=== PATIENT | female | born 1980 | race Asian ===

== ENCOUNTER 2016-12-25 01:54 | Emergency (ER) | payer SELFPAY ==
[~2016-12-25] VITALS: Ht 162.6 cm; Wt 49.9 kg
[2016-12-25] MEDS ORDERED: NKM (02:03)
[2016-12-25 02:05] VITALS: BP 124/82
--- NOTE | 2016-12-25 02:56 | Emergency Room Report ---
History of Present Illness General Chief Complaint: Behavioral Complaint Source: Patient Present Illness HPI 28-year-old female no significant past medical history brought by EMS for her running in the street and yelling. Patient states that she drank a few drinks, currently denying any and SI or HI. Denies any psych history. Allergies: Coded Allergies: No Known Allergies (Unverified , 12/25/16) Patient History Past Medical History: see triage record Past Surgical History: none Pertinent Family History: none Last Menstrual Period: 2 weeks ago Reviewed Nursing Documentation: PMH: Agreed, PSxH: Agreed Nursing Documentation-PMH Past Medical History: No Stated History Review of Systems All Other Systems: negative except mentioned in HPI Physical Exam Vital Signs Date Time Temp Pulse Resp B/P (MAP) Pulse Ox O2 Delivery O2 Flow Rate FiO2 12/25/16 02:02 98.1 114 16 124/82 98 Room Air Sp02 EP Interpretation: reviewed, normal General Appearance: alert, GCS 15, non-toxic, other - Intoxicated female, anxious-appearing, conversing however very guarded Head: normocephalic, atraumatic Eyes: bilateral eye normal inspection, bilateral eye PERRL, bilateral eye EOMI ENT: normal ENT inspection, normal pharynx, normal voice, moist mucus membranes Neck: normal inspection, full range of motion, supple Respiratory: normal inspection, lungs clear, normal breath sounds, no respiratory distress, no retraction, no wheezing, speaking full sentences, chest symmetrical Cardiovascular #1: normal inspection, regular rate, rhythm, no edema, normal capillary refill Cardiovascular #2: 2+ radial (R), 2+ radial (L) Gastrointestinal: normal inspection, non tender, soft, non-distended, no guarding Musculoskeletal: normal inspection, back normal, normal range of motion, non- tender Neurologic: normal inspection, alert, oriented x3, responsive, motor strength/ tone normal, sensory intact, normal gait, speech normal Psychiatric: normal inspection, judgement/insight normal, memory normal Skin: normal inspection, normal color, no rash, warm/dry, well hydrated, normal turgor Medical Decision Making Diagnostic Impression: Primary Impression: Alcohol intoxication ER Course 36-year-old female, brought by EMS, found in the street possible alcohol intoxication versus psych DDX: Likely alcohol intoxication Psych: At this time patient denies any SI, TOBIAS, auditory hallucinations Plan: BGM, Obtain labs, alcohol level, pending sobriety ER course: I evaluated the patient at bedside, took a history, patient denying any S. I or HI, denies hearing voices, states that she had a couple drinks. Patient appeared very anxious and paranoid that we were going to report her, and I calmly told her that we are only trying to help her. Patient looks, ran outside, security found her running on street and brought her back to the emergency room Blood work was drawn, patient's alcohol level 199 I called the patient's sister and , the came and picked up the patient. Close patient's sister and denies patient ever having any psych history, has been states that patient was only drunk. She was ambulatory in the emergency room Safe for discharge Now clinically sober, ambulatory. Disposition: Patient is to be discharged to home. Patient is instructed to follow up with their primary care doctor within 5 days. Please note that this Emergency Department Report was dictated using [employer] technology software, occasionally this can lead to erroneous entry secondary to interpretation by the dictation equipment Laboratory Tests Test 12/25/16 03:18 White Blood Count 5.8 K/UL (4.8-10.8) Red Blood Count 4.64 M/UL (4.20-5.40) Hemoglobin 14.0 G/DL (12.0-16.0) Hematocrit 42.3 % (37.0-47.0) Mean Corpuscular Volume 91 FL (80-99) Mean Corpuscular Hemoglobin 30.3 PG (27.0-31.0) Mean Corpuscular Hemoglobin Concent 33.2 G/DL (32.0-36.0) Red Cell Distribution Width 10.8 % (11.6-14.8) L Platelet Count 274 K/UL (150-450) Mean Platelet Volume 6.6 FL (6.5-10.1) Neutrophils (%) (Auto) 79.2 % (45.0-75.0) H Lymphocytes (%) (Auto) 15.2 % (20.0-45.0) L Monocytes (%) (Auto) 3.9 % (1.0-10.0) Eosinophils (%) (Auto) 0.6 % (0.0-3.0) Basophils (%) (Auto) 1.1 % (0.0-2.0) Sodium Level 143 mEQ/L (135-145) Potassium Level 3.5 mEQ/L (3.4-4.9) Chloride Level 104 mEQ/L (98-107) Carbon Dioxide Level 21 mEQ/L (20-30) Anion Gap 18 (5-15) H Blood Urea Nitrogen 10 mg/dL (7-23) Creatinine 0.6 mg/dL (0.5-0.9) Estimate Glomerular Filtration Rate > 60 mL/min (>60) Glucose Level 131 mg/dL (74-106) H Calcium Level 9.5 mg/dL (8.6-10.2) Total Bilirubin 0.5 mg/dL (0.0-1.2) Aspartate Amino Transferase (AST) 24 U/L (5-40) Alanine Aminotransferase (ALT) 24 U/L (3-33) Alkaline Phosphatase 48 U/L (35-104) Total Protein 7.8 g/dL (6.6-8.7) Albumin 4.8 g/dL (3.5-5.2) Globulin 3.0 g/dL Albumin/Globulin Ratio 1.6 (1.0-2.7) Salicylates Level < 1 mg/dL (10-30) L Acetaminophen Level < 10 ug/mL (10-30) L Serum Alcohol 199 mg/dL Last Vital Signs Date Time Temp Pulse Resp B/P (MAP) Pulse Ox O2 Delivery O2 Flow Rate FiO2 12/25/16 02:02 98.1 114 16 124/82 98 Room Air Disposition: HOME, SELF-CARE Condition: Improved Patient Instructions: Alcohol Intoxication Dinora Stallworth M.D. Dec 25, 2016 02:56
[2016-12-25 03:47] LABS: BASOPHILS % (AUTO) 1.1 % (0.0-2.0); EOSINOPHILS % (AUTO) 0.6 % (0.0-3.0); LYMPHOCYTES % (AUTO) 15.2 % (20.0-45.0); MEAN CORPUSCULAR HEMOGLOBIN 30.3 PG (27.0-31.0); MEAN CORPUSCULAR HGB CONC 33.2 G/DL (32.0-36.0); MEAN CORPUSCULAR VOLUME 91 FL (80-99); MEAN PLATELET VOLUME 6.6 FL (6.5-10.1); MONOCYTES % (AUTO) 3.9 % (1.0-10.0); NEUTROPHILS % (AUTO) 79.2 % (45.0-75.0); PLATELET COUNT 274 K/UL (150-450); RED BLOOD COUNT 4.64 M/UL (4.20-5.40); RED CELL DISTRIBUTION WIDTH 10.8 % (11.6-14.8); WHITE BLOOD COUNT 5.8 K/UL (4.8-10.8)
[2016-12-25 04:04] LABS: ACETAMINOPHEN < 10 ug/mL (10-30); ALANINE AMINOTRANSFERASE 24 U/L (3-33); ALBUMIN/GLOBULIN RATIO 1.6 (1.0-2.7); ALCOHOL 199 mg/dL; ANION GAP 18 (5-15); ASPARTATE AMINO TRANSFERASE 24 U/L (5-40); CALCIUM 9.5 mg/dL (8.6-10.2); CARBON DIOXIDE 21 mEQ/L (20-30); CHLORIDE 104 mEQ/L (98-107); CREATININE 0.6 mg/dL (0.5-0.9); GLOMERULAR FILTRATION RATE > 60 mL/min (>60); HEMOLYSIS 12; POTASSIUM 3.5 mEQ/L (3.4-4.9); SODIUM 143 mEQ/L (135-145); TOTAL PROTEIN 7.8 g/dL (6.6-8.7)
[2016-12-25 04:15] VITALS: BP 124/82
== END 2016-12-25 04:15 | disposition home or self-care (01) ==
LOC: EDBD 01:54 → EMR 02:12
DX: F10.129 Alcohol abuse with intoxication, unspecified (principal)
CPT/HCPCS: 36415; 80053; 85025; 99283; G0480; 80329